=== PATIENT | female | born 1970 | race Asian ===

== ENCOUNTER 2019-04-20 14:17 | Emergency (ER) | payer BC ==
[2019-04-20 14:27] VITALS: BP 135/85
--- NOTE | 2019-04-20 15:02 | UC ---
Cardiac HPI - HPI Summary HPI Summary: 48-year-old woman comes in to clinic today with a chief complaint of chest pain. Started 2-3 days ago. She's had 4-6 days of chest congestion and coughing. Pain is in the left lower anterior and also goes into the left lower posterior. Pain is worse with coughing and with laying down flat. Also pain gets worse when she swallows. She has been able to eat and drink normally no history of esophageal foreign body. Patient denies any concern of heart attack. This pain reminds her when she had a pneumonia in the past. No complaint of any rhinorrhea. She has had chills. No edema. No history of DVT or PE. - History of Current Complaint Chief Complaint: UCRespiratory Stated Complaint: COUGH CHEST CONGESTION SORE THROAT Time Seen by Provider: 04/20/19 14:51 Pain Intensity: 6 - Allergy/Home Medications Allergies/Adverse Reactions: Allergies Allergy/AdvReac Type Severity Reaction Status Date / Time amoxicillin Allergy diarhea Verified 04/20/19 14:28 nebivolol Allergy Rash Verified 04/20/19 14:30 Home Medications: Home Medications Estradiol TAB(NF) 1 tab PO DAILY 04/20/19 [History Confirmed 04/20/19] Lisinopril [Lisinopril 2.5 MG-] 1 tab PO DAILY 04/20/19 [History Confirmed 04/20] amLODIPine TAB* [Norvasc 5 mg TAB*] 10 mg PO DAILY 04/20/19 [History Confirmed 04/20/19] PMH/Surg Hx/FS Hx/Imm Hx Previously Healthy: Yes - is on estradiol Cardiovascular History: Hypertension - Surgical History Surgical History: Yes Surgery Procedure, Year, and Place: tubal - Family History Known Family History: Positive: Non-Contributory - Social History Alcohol Use: None Substance Use Type: None Smoking Status (MU): Never Smoked Tobacco Review of Systems All Other Systems Reviewed And Are Negative: Yes Constitutional: Positive: Other - see hpi Skin: Positive: Negative Eyes: Positive: Negative ENT: Positive: Negative Respiratory: Positive: Other - see hpi Cardiovascular: Positive: Chest Pain - see hpi Gastrointestinal: Positive: Negative Motor: Positive: Negative Neurovascular: Positive: Negative Musculoskeletal: Positive: Negative. Negative: Calf Tenderness, Edema Neurological: Positive: Negative Psychological: Positive: Negative Is Patient Immunocompromised?: No Physical Exam Triage Information Reviewed: Yes Appearance: Well-Appearing, No Pain Distress, Well-Nourished Vital Signs: Initial Vital Signs Temp 97.8 F 04/20/19 14:24 Pulse 90 04/20/19 14:24 Resp 16 04/20/19 14:24 BP 135/85 04/20/19 14:24 Pulse Ox 100 04/20/19 14:24 Vital Signs Reviewed: Yes Eye Exam: Normal Eyes: Positive: Conjunctiva Clear ENT: Positive: Pharynx normal, TMs normal Neck: Positive: Supple Respiratory: Positive: Lungs clear, Normal breath sounds, No respiratory distress Cardiovascular: Positive: RRR Musculoskeletal: Positive: Strength Intact, ROM Intact, No Edema - no calf tenderness Neurological: Positive: Alert, Muscle Tone Normal Psychological: Positive: Age Appropriate Behavior Skin Exam: Normal Diagnostics - EKG Cardiac Rate: NL - AT 1611 Cardiac Rhythm: Sinus: Normal - 82BPM Ectopy: None ST Segment: Normal - Q-wave in III and aVF. No old EKG for comparison. - Assessment/Plan Course Of Treatment: Car Detailer: Amanda Telles S ([id number]) Vehicle Maintenance Technician: RAFAEL (RAFAEL) Report Date: 04/20/2019 15:20:00 Report Status: Final Start of Report Content Patient Name: ZEV SÁNCHEZ Medical Record#: [id number] Ordering Physician: Reji Fabian MD Acct.#: [id number] : Age: 48 Sex: F Location: [facility] Exam Date: 04/20/191456 ADM Status: REG ER Order Information: CHEST PA LAT 2 VWS Accession Number: [id number] CPT: 17135 Indication: Cough. 2 views of the chest including dual energy PA views demonstrate no mediastinal shift. Heart is of normal size and configuration. Lungs are clear. IMPRESSION: No active cardiopulmonary disease is noted. < Electronically signed by Amanda Telles MD in OV> 04/20/191515 Dictated By: Amanda Telles MD Dictated Date/Time: 04/20/191515 Transcribed Date/Time: 04/20/191515 Copy to: CC:No Primary Care Phys,NOPCP ; Reji Fabian MD Imaging - [facility] Imaging - [facility] Imaging - [facility] [address] [place] [id number] [address] [address] ph ([phone]) ph ([phone]) ph ([phone]) ===== End of Report Content I discussed the chest x-ray and EKG with the patient. I do not appreciate any ischemic changes on the EKG. Patient states this is the Pain she had last year when she had a pneumonia. Patient also reports she gets some pain when she swallows. We discussed going to the emergency department for further evaluation of the chest pain at this time. Patient prefers to not go at this time and prefers to go see her primary care physician in follow-up. She reports she has a follow-up appointment set up with her primary care doctor next week on Wednesday. Plan will be to treat with [place] azithromycin for the possibility of bronchitis causing the symptoms and also with omeprazole for the possibility of GERD causing the symptoms. We discussed that if anything changed or got worse or if there is any other questions or concerns she should go the emergency department for further evaluation and care. - Clinical Impression Provider Diagnosis: Chest pain Discharge ED - Sign-Out/Discharge Documenting (check all that apply): Patient Departure All imaging exams completed and their final reports reviewed: Yes - Discharge Plan Condition: Stable Disposition: HOME Prescriptions: Azithromyxin STEVAN (NF) [Z-Stevan (Zithromax) 250 mg tabs #6] 2 tab PO .TODAY, THEN 1 DAILY #6 tab Omeprazole 20 mg PO BID #30 capsule. Patient Education Materials: Chest Pain (ED), Acute Bronchitis (ED), Gastroesophageal Reflux Disease (ED) Referrals: [facility] [Outside] Additional Instructions: FOLLOW UP WITH YOUR DOCTOR SCHEDULED. GO TO THE EMERGENCY DEPARTMENT IF NOT IMPROVED OR WORSE; PAIN, SHORTNESS OF BREATH, YOU FEEL ILL, CONCERN OF A HEART ATTACK OR ANY QUESTIONS OR CONCERNS. - Billing Disposition and Condition Condition: STABLE Disposition: Home
== END 2019-04-20 16:50 | disposition home or self-care (01) ==
LOC: UCEAST 14:17
DX: R07.89 Other chest pain (principal); R09.89 Other specified symptoms and signs involving the circulatory and respiratory systems; R05 Cough; I10 Essential (primary) hypertension; Z88.0 Allergy status to penicillin; Z88.8 Allergy status to other drugs, medicaments and biological substances; Z79.899 Other long term (current) drug therapy
CPT/HCPCS: 71046; 93005; 99212; G0463